=== PATIENT | male | born 2000 | race Hispanic/Latino ===

== ENCOUNTER 2021-12-04 18:52 | Emergency (ER) | payer BC | END 2021-12-04 20:22 | disposition home or self-care (01) | LOC: CSHERS 18:52 | DX: U07.1 COVID-19 (principal); R10.9 Unspecified abdominal pain | CPT/HCPCS: 99284; U0003; U0005 ==

== ENCOUNTER 2023-04-09 21:46 | Emergency (ER) | payer BC, SELFPAY ==
[2023-04-09] MEDS ORDERED: Boostrix 0.5 ML (Tdap) VIAL (>/=7 yrs of age) ONE ×2 (22:13→22:15)
[2023-04-09] MEDS ORDERED: Proparacaine 0.5% Opth 15 ML BOT ONE (22:14)
[2023-04-09] MEDS ORDERED: Fluorescein Opthalmic Strip ONE (22:19)
[2023-04-09] MEDS ORDERED: Erythromycin Base 0.5% Oint 1 GM TUBE EA EYE SCH (23:45)
== END 2023-04-09 23:57 | disposition home or self-care (01) ==
LOC: CSHERS 21:46
DX: T26.61XA Corrosion of cornea and conjunctival sac, right eye, initial encounter (principal); X58.XXXA Exposure to other specified factors, initial encounter
CPT/HCPCS: 90471; 90715